=== PATIENT | female | born 1980 | race Caucasian/White ===

== ENCOUNTER 2016-12-26 18:59 | Emergency (ER) | payer OTHER ==
[2016-12-26 18:59] VITALS: BMI 26.5
[2016-12-26] MEDS ORDERED: Bacitracin 500 Units/gm Oint Foilpak UD ONE (19:42)
[2016-12-26 19:47] VITALS: BP 134/77; PULSE 88; RESP 14; O2SAT 100
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
== END 2016-12-26 19:58 | disposition home or self-care (01) ==
LOC: C.ER 18:59
DX: Z48.02 Encounter for removal of sutures (principal)